=== PATIENT | female | born 1995 | race African-American/Black ===

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

== ENCOUNTER 2019-12-28 13:31 | Observation (INO) ==
[2019-12-28 15:09] LABS: Basophils % 0.3 % (0.0-0.8); Eosinophils # 0.3 10*3/uL (0.0-0.87); Eosinophils % 2.2 % (0.00-10.9); Hematocrit 42.9 VOL% (35.7-47.0); Hemoglobin 14.7 GM/DL (12.0-16.0); Immature Granulocytes % 0.4 %; Immature Granulocytes Absolute 0.05 #; Lymphocytes # 2.1 10*3/uL (1.4-4.0); Lymphocytes % 15.5 % (21.3-54.2); Mean Corpuscular HGB Conc 34.3 GM/DL (32-36); Mean Corpuscular Volume 90.1 FL (87-102); Mean Platelet Volume 10.7 FL (9.6-12.0); Monocytes % 5.4 % (1.7-12.7); Neutrophils % 76.2 % (38.7-73.9); Platelet Count 264 T/CUMM (130-400); Red Blood Count 4.76 MC/CUMM (3.8-5.5); Red Cell Distribution Width 11.8 % (9.3-17.3); White Blood Count 13.2 T/CUMM (4-12)
[2019-12-28 15:34] LABS: Calcium 9.2 MG/DL (8.5-10.1)
[2019-12-28 16:37] LABS: Apearance,Urine CLEAR (Clear); Bilirubin,Urine Negative (Negative); Blood, Urine Moderate mg/dL (Negative); Glucose,Urine (UA) Negative (Negative); Ketones,Urine 20 mg/dL (Negative); Mucus,Urine Occasional /LPF (Occasional); Nitrite,Urine Negative (Negative); Protein,Urine Negative; RBC,Urine 2 /HPF (0-4); Squamous Epithelial Cell,Urine Occasional /HPF (0-10); Urine Color Yellow (Yellow); Urine Specific Gravity 1.019 (1.001-1.035); Urine Urobilinogen < 2.0 EU/DL (0.2-1.0); WBC,Urine 1 /HPF (0-6)
[2019-12-28] MEDS ORDERED: METHYLENE BLUE 10 ML VIAL IV ONE (17:01)
[2019-12-28] MEDS ORDERED: SUGAMMADEX 200 MG/2 ML VIAL IV ONE (18:05)
[2019-12-28] MEDS ORDERED: MAGNESIUM HYDROXIDE SUSP 30 ML UDCUP PO PRN (18:19)
[2019-12-28] MEDS ORDERED: BISACODYL 10 MG SUPP RECTAL PRN (18:19)
[2019-12-28] MEDS ORDERED: DOCUSATE SODIUM 100 MG CAPSULE PO PRN (18:19)
[2019-12-28] MEDS ORDERED: BENZOCAINE/MENTHOL LOZENGE 18/BOX PO PRN (18:19)
[2019-12-28] MEDS ORDERED: ONDANSETRON 4 MG/2 ML VIAL IV PRN ×2 (18:19→18:26)
[2019-12-28] MEDS ORDERED: ACETAMINOPHEN 325 MG TABLET PO PRN (18:19)
[2019-12-28] MEDS ORDERED: IBUPROFEN 800 MG TABLET PO PRN (18:19)
[2019-12-28] MEDS ORDERED: diphenhydrAMINE 50 MG/1 ML VIAL IV PRN (18:26)
[2019-12-28] MEDS ORDERED: PROMETHAZINE INJ 25 MG in SODIUM CHLORIDE 0.9% 50 ML IV PRN (18:26)
[2019-12-28] MEDS: MEPERIDINE 25 MG/1 ML VIAL IV PRN ×2 (18:30→18:45)
[2019-12-28] MEDS ORDERED: LACTATED RINGERS 1,000 ML IV SCH (18:30)
[2019-12-28] MEDS ORDERED: propofoL 200 MG/20 ML VIAL IV ONE (18:32)
[2019-12-28] MEDS ORDERED: LIDOCAINE 2% 5 ML VIAL ONE (18:32)
[2019-12-28] MEDS ORDERED: SEVOFLURANE 1 UNIT/15 MINUTE INH ONE (18:33)
[2019-12-28] MEDS ORDERED: MIDAZOLAM 2 MG/2 ML VIAL ONE ×2 (18:33→18:34)
[2019-12-28] MEDS ORDERED: ACETAMINOPHEN 1,000 MG/100 ML VIAL IV ONE (18:34)
[2019-12-28] MEDS ORDERED: KETOROLAC 30 MG/1 ML VIAL ONE (18:34)
[2019-12-28] MEDS ORDERED: SUCCINYLCHOLINE 200 MG/10 ML VIAL ONE (18:34)
[2019-12-28] MEDS ORDERED: fentaNYL 100 MCG/2 ML VIAL ONE (18:34)
[2019-12-28] MEDS ORDERED: DEXAMETHASONE 4 MG/1 ML VIAL ONE (18:34)
[2019-12-28] MEDS ORDERED: ROCURONIUM 100 MG/10 ML VIAL IV ONE (18:34)
[2019-12-28] MEDS ORDERED: MEPERIDINE 50 MG/1 ML VIAL IV PRN (20:59)
[2019-12-29] MEDS: ceFAZolin 1,000 MG in SYRINGE 1 EACH IV SCH ×2 (00:30→09:39)
[2019-12-29 05:34] LABS: Basophils % 0.1 % (0.0-0.8); Hematocrit 38.3 VOL% (35.7-47.0); Hemoglobin 13.8 GM/DL (12.0-16.0); Immature Granulocytes % 0.5 %; Immature Granulocytes Absolute 0.08 #; Lymphocytes # 0.7 10*3/uL (1.4-4.0); Lymphocytes % 4.8 % (21.3-54.2); Mean Corpuscular Volume 86.5 FL (87-102); Mean Platelet Volume 11.1 FL (9.6-12.0); Monocytes % 1.5 % (1.7-12.7); Neutrophils % 93.1 % (38.7-73.9); Platelet Count 258 T/CUMM (130-400); Red Blood Count 4.43 MC/CUMM (3.8-5.5); Red Cell Distribution Width 11.6 % (9.3-17.3); White Blood Count 14.9 T/CUMM (4-12)
[2019-12-29 06:02] LABS: Band Neutrophils 2 % (0-10); Lymphocytes 3 % (20-55); Segmented Neutrophils 93 % (50-85); Total Cells Counted 100
[2019-12-29 06:03] LABS: Hypochromasia Slight; Microcytosis Slight; Platelet Estimate Normal
[2019-12-29 11:17] VITALS: BP 98/57
== END 2019-12-29 15:45 | disposition home or self-care (01) ==
LOC: N.EDINP 13:31 → N.ED 13:31 → N.OB 18:30
PROVIDERS: ADMIT Obstetrics & Gynecology; ATTEND Obstetrics & Gynecology

== ENCOUNTER 2021-09-19 12:52 | Inpatient (IN) ==
[2021-09-19 13:58] LABS: Bacteria,Urine Occasional /HPF (Few); Mucus,Urine Many /LPF (Occasional); RBC,Urine 4 /HPF (0-4); Squamous Epithelial Cell,Urine Occasional /HPF (0-10)
[2021-09-19 13:59] LABS: Bilirubin,Urine Negative (Negative); Blood, Urine Negative (Negative); Glucose,Urine (UA) Negative (Negative); Ketones,Urine Trace mg/dL (Negative); Nitrite,Urine Negative (Negative); Protein,Urine Negative (Negative); Urine Appearance Clear (Clear); Urine Color Yellow (Yellow); Urine pH 6.5 (4.5-8.0)
[2021-09-19 14:35] LABS: Barbiturates Screen,Urine Negative (Negative); Benzodiazepines Screen,Urine Negative (Negative); Cannabinoid Screen,Urine Negative (Negative); Opiate Screen,Urine Negative (Negative); Phencyclidine Screen,Urine Negative (Negative)
[2021-09-19 16:05] LABS: Albumin 3.7 G/DL (3.4-5.0); Bilirubin,Total 0.4 MG/DL (0.20-1.00); Calcium 8.9 MG/DL (8.5-10.1); Osmolality,Calculated 272.5 MOS/KG (273-304); Potassium 4.4 MMOL/L (3.5-5.1); Total Protein 7.3 G/DL (6.4-8.2)
[2021-09-19 16:06] LABS: Basophils % 0.3 % (0.0-0.8); Eosinophils # 0.1 10*3/uL (0.0-0.87); Eosinophils % 1.1 % (0.00-10.9); Hematocrit 37.7 VOL% (35.7-47.0); Hemoglobin 13.2 GM/DL (12.0-16.0); Immature Granulocytes % 0.3 %; Immature Granulocytes Absolute 0.03 #; Lymphocytes # 1.8 10*3/uL (1.4-4.0); Mean Corpuscular Volume 88.3 FL (87-102); Mean Platelet Volume 11.1 FL (9.6-12.0); Monocytes % 6.2 % (1.7-12.7); Neutrophils % 74.1 % (38.7-73.9); Platelet Count 265 T/CUMM (130-400); Red Blood Count 4.27 MC/CUMM (3.8-5.5); Red Cell Distribution Width 12.2 % (9.3-17.3)
[2021-09-19] MEDS ORDERED: ACETAMINOPHEN 325 MG TABLET PO PRN (21:34)
[2021-09-19] MEDS ORDERED: IBUPROFEN 800 MG TABLET PO PRN (21:35)
[2021-09-19] MEDS ORDERED: LACTATED RINGERS 1,000 ML IV SCH (22:00)
[2021-09-20] MEDS ORDERED: fentaNYL 100 MCG/2 ML VIAL ONE (08:55)
[2021-09-20] MEDS ORDERED: ONDANSETRON 4 MG/2 ML VIAL ONE ×2 (08:55→10:25)
[2021-09-20] MEDS ORDERED: propofoL 200 MG/20 ML VIAL IV ONE (08:55)
[2021-09-20] MEDS ORDERED: LIDOCAINE 2% 5 ML VIAL ONE (08:55)
[2021-09-20] MEDS ORDERED: ROCURONIUM 50 MG/5 ML VIAL IV ONE (08:55)
[2021-09-20] MEDS ORDERED: MIDAZOLAM 2 MG/2 ML VIAL ONE (08:56)
[2021-09-20] MEDS ORDERED: LACTATED RINGERS 1,000 ML IV ONE (10:03)
[2021-09-20] MEDS ORDERED: NEOSTIGMINE 10 MG/10 ML VIAL ONE (10:06)
[2021-09-20] MEDS ORDERED: GLYCOPYRROLATE 0.4 MG/2 ML VIAL ONE (10:06)
[2021-09-20] MEDS ORDERED: SEVOFLURANE 1 UNIT/15 MINUTE INH ONE (10:08)
[2021-09-20] MEDS ORDERED: ONDANSETRON 4 MG/2 ML VIAL IV PRN ×2 (10:24→10:28)
[2021-09-20] MEDS ORDERED: MEPERIDINE 50 MG/1 ML VIAL IV PRN (10:24)
[2021-09-20] MEDS ORDERED: HYDROmorphone 1 MG/1 ML SYRINGE ONE (10:25)
[2021-09-20] MEDS: HYDROmorphone 1 MG/1 ML SYRINGE IV PRN ×2 (10:26→10:33)
[2021-09-20] MEDS ORDERED: ACETAMINOPHEN 325 MG TABLET PO PRN (10:28)
[2021-09-20] MEDS ORDERED: BENZOCAINE/MENTHOL LOZENGE 18/BOX PO PRN (10:28)
[2021-09-20] MEDS ORDERED: BISACODYL 10 MG SUPP RECTAL PRN (10:28)
[2021-09-20] MEDS ORDERED: MAGNESIUM HYDROXIDE SUSP 30 ML UDCUP PO PRN (10:28)
[2021-09-20] MEDS ORDERED: LACTATED RINGERS 1,000 ML IV SCH (10:30)
[2021-09-20] MEDS ORDERED: MEPERIDINE 25 MG/1 ML VIAL ONE (10:39)
[2021-09-20] MEDS: IBUPROFEN 800 MG TABLET PO PRN (15:31)
[2021-09-20] MEDS: DOCUSATE SODIUM 100 MG CAPSULE PO PRN (19:50)
[2021-09-20] MEDS: SIMETHICONE CHEW 80 MG TABLET PO PRN (19:50)
[2021-09-20] MEDS: oxyCODONE/ACETAMINOPHEN 5-325 MG TABLET PO PRN (19:51)
[2021-09-21] MEDS: IBUPROFEN 800 MG TABLET PO PRN ×2 (00:16→07:50)
[2021-09-21 06:06] LABS: Basophils % 0.2 % (0.0-0.8); Eosinophils # 0.2 10*3/uL (0.0-0.87); Eosinophils % 1.6 % (0.00-10.9); Hematocrit 32.6 VOL% (35.7-47.0); Hemoglobin 11.4 GM/DL (12.0-16.0); Immature Granulocytes % 0.2 %; Immature Granulocytes Absolute 0.02 #; Lymphocytes # 2.1 10*3/uL (1.4-4.0); Lymphocytes % 22.6 % (21.3-54.2); Mean Corpuscular Volume 88.1 FL (87-102); Monocytes % 5.9 % (1.7-12.7); Neutrophils % 69.5 % (38.7-73.9); Platelet Count 219 T/CUMM (130-400); Red Cell Distribution Width 12.1 % (9.3-17.3); White Blood Count 9.2 T/CUMM (4-12)
[2021-09-21 07:16] VITALS: BP 114/52
[2021-09-21] MEDS: DOCUSATE SODIUM 100 MG CAPSULE PO PRN (07:48)
[2021-09-21] MEDS: oxyCODONE/ACETAMINOPHEN 5-325 MG TABLET PO PRN (07:49)
[2021-09-21] MEDS: SIMETHICONE CHEW 80 MG TABLET PO PRN (07:51)
== END 2021-09-21 12:55 | disposition home or self-care (01) | DRG 547 ==
LOC: N.ED 12:52 → N.EDINP 16:11 → N.OB 17:35
PROVIDERS: ADMIT Obstetrics & Gynecology; ATTEND Obstetrics & Gynecology